=== PATIENT | female | born 1970 | race Caucasian/White ===

== ENCOUNTER 2025-01-02 19:46 | Inpatient (IN) | payer MEDICARE, MEDICAID ==
[~2025-01-02] VITALS: Ht 165.1 cm; Wt 97.2 kg
[2025-01-02 22:40] LABS: BASOPHILS % (AUTO) 0.5 % (0.0-2.0); EOSINOPHILS % (AUTO) 1.6 % (1.0-6.0); HEMATOCRIT 40.6 % (36-46); HEMOGLOBIN 13.5 g/dL (12.0-16.0); LYMPHOCYTES # (AUTO) 4.4 K/uL (1.0-4.8); MEAN CORPUSCULAR HEMOGLOBIN 30.9 pg (26.0-34.0); MEAN CORPUSCULAR HGB CONC 33.3 G/dL (31.0-37.0); MEAN CORPUSCULAR VOLUME 93 fL (80-100); MONOCYTES # (AUTO) 1.2 K/uL (0.1-1.0); MONOCYTES % (AUTO) 10.4 % (2.0-9.0); NEUTROPHILS % (AUTO) 50.5 % (40.0-70.0); PLATELET COUNT (AUTO) 241 K/uL (150-450); RED BLOOD CELL COUNT(AUTO) 4.38 MIL/uL (4.00-5.20); RED CELL DISTRIBUTION WIDTH 13.1 % (11.5-14.5); WHITE BLOOD COUNT (AUTO) 11.8 K/uL (4.5-11.0)
[2025-01-02 22:48] LABS: ANION GAP 7 mmol/L (8-16); CALCIUM, TOTAL 9.4 mg/dL (8.8-10.5); CARBON DIOXIDE 35 mmol/L (22-29); CHLORIDE 101 mmol/L (98-107); CREATININE 1.03 mg/dL (0.60-1.30); GLOMERULAR FILTR. RATE CALC 56 mL/min (>60); GLUCOSE,RANDOM 109 mg/dL (70-110); POTASSIUM 4.3 mmol/L (3.5-5.1); SODIUM SERUM 143 mmol/L (136-145); UREA NITROGEN, BLOOD 23 mg/dL (7-18)
[2025-01-02 22:51] LABS: ALCOHOL, BLOOD (SERUM) < 3 mg/dL (0-10)
[2025-01-03] VITALS (10 sets, daily range): BP systolic 124–149; BP diastolic 80–97; PULSE 86–90; RESP 17–18; TEMP 97.5–98.1; O2SAT 96–99
[2025-01-03 00:29] LABS: COVID AG,FIA SOURCE NASAL SWAB
[2025-01-03 00:49] LABS: SARS-COV2 (COVID) ANTIGEN,FIA Negative (Negative)
[2025-01-03] MEDS ORDERED: ZOLPIDEM TARTRATE 10 MG TABLET PO PRN (05:45)
[2025-01-03] MEDS ORDERED: LORazepam 2 MG TABLET PO PRN (05:45)
[2025-01-03] MEDS ORDERED: HALOPERIDOL 5 MG TABLET PO PRN (05:45)
[2025-01-03] MEDS ORDERED: MAG HYDROX/ALUMINUM HYD/SIMETH ES 30 ML SUSPENSION UDCUP PO PRN ×2 (09:45→10:00)
[2025-01-03] MEDS ORDERED: MAGNESIUM HYDROXIDE SUSPENSION 30 ML UDCUP PO PRN ×2 (09:45→10:00)
[2025-01-03] MEDS ORDERED: CloNIDine HCL 0.1 MG TABLET PO PRN (09:45)
[2025-01-03] MEDS ORDERED: DOCUSATE SODIUM 100 MG CAPSULE PO PRN (09:45)
[2025-01-03] MEDS ORDERED: GuaiFENesin/D-METHORPHAN [SUGAR-FREE] 200-20MG/10 ML SYRUP UDCUP PO PRN ×2 (09:45→10:00)
[2025-01-03] MEDS ORDERED: IBUPROFEN 400 MG TABLET PO PRN (09:45)
[2025-01-03] MEDS ORDERED: ONDANSETRON 4 MG TABLET PO PRN (09:45)
[2025-01-03] MEDS ORDERED: ALBUTEROL SULFATE HFA 90 MCG/PUFF 8 GM INHALER IH PRN (09:45)
[2025-01-03] MEDS ORDERED: ACETAMINOPHEN 325 MG TABLET PO PRN (09:45)
[2025-01-03] MEDS ORDERED: NICOTINE 14 MG/24 HOUR PATCH TD PRN (09:45)
[2025-01-03] MEDS ORDERED: PETROLATUM,WHITE 28 GM JELLY TP PRN (09:45)
[2025-01-03] MEDS ORDERED: LOPERAMIDE HCL 2 MG CAPSULE PO PRN ×2 (09:45→10:00)
[2025-01-03] MEDS ORDERED: MELATONIN 5 MG TABLET PO PRN (10:00)
[2025-01-03] MEDS ORDERED: PROMETHAZINE HCL 25 MG TABLET PO PRN (10:00)
[2025-01-03] MEDS ORDERED: HydrOXYzine PAMOATE 50 MG CAPSULE PO PRN (10:00)
[2025-01-03] MEDS: ACETAMINOPHEN 325 MG TABLET PO PRN ×2 (10:58→15:54)
[2025-01-03] MEDS: LevETIRAcetam 100 MG/ML 5 ML SOLUTION UDCUP PO SCH (16:30)
[2025-01-03] MEDS: LamoTRIgine 100 MG TABLET PO SCH (16:31)
[2025-01-03] MEDS: THIAMINE 100 MG TABLET PO SCH (16:31)
[2025-01-03] MEDS: PALIPERIDONE PALMITATE 234 MG/1.5 ML SYRINGE IM ONE (16:59)
[2025-01-03] MEDS: TUBERCULIN, PURIFIED PROTEIN DERIVATIVE 5 TU/0.1 ML SYRINGE ID ONE (17:36)
[2025-01-03] MEDS: OLANZapine 5 MG RAPDIS TABLET PO SCH (20:41)
[2025-01-03] MEDS: DIVALPROEX SODIUM 500 MG ER TABLET PO SCH (20:41)
[2025-01-04 00:17] VITALS: RESP 16
[2025-01-04 08:06] VITALS: BP 149/104; PULSE 92; RESP 18; TEMP 97.8; O2SAT 98
[2025-01-04] MEDS: NALTREXONE HCL 50 MG TABLET PO SCH (08:40)
[2025-01-04] MEDS ORDERED: FOLIC ACID 1 MG TABLET PO SCH (09:00)
[2025-01-04] MEDS ORDERED: MULTIVITAMINS WITH MINERALS, THERAPEUTIC TABLET PO SCH (09:00)
[2025-01-04 09:38] LABS: BASOPHILS % (AUTO) 0.6 % (0.0-2.0); EOSINOPHILS % (AUTO) 2.3 % (1.0-6.0); HEMATOCRIT 40.9 % (36-46); HEMOGLOBIN 13.7 g/dL (12.0-16.0); LYMPHOCYTES # (AUTO) 3.1 K/uL (1.0-4.8); MEAN CORPUSCULAR HEMOGLOBIN 31.4 pg (26.0-34.0); MEAN CORPUSCULAR HGB CONC 33.5 G/dL (31.0-37.0); MEAN CORPUSCULAR VOLUME 94 fL (80-100); MONOCYTES % (AUTO) 9.5 % (2.0-9.0); NEUTROPHILS # (AUTO) 5.7 K/uL (1.8-7.7); NEUTROPHILS % (AUTO) 56.6 % (40.0-70.0); PLATELET COUNT (AUTO) 241 K/uL (150-450); RED BLOOD CELL COUNT(AUTO) 4.36 MIL/uL (4.00-5.20); RED CELL DISTRIBUTION WIDTH 13.4 % (11.5-14.5)
[2025-01-04 09:39] LABS: HEMOGLOBIN A1C 5.4 % (3.8-5.6)
[2025-01-04 10:08] LABS: ALANINE AMINOTRANSFERASE 29 U/L (12-78); ALKALINE PHOSPHATASE 80 U/L (46-116); ANION GAP 7 mmol/L (8-16); ASPARTATE AMINOTRANSFERASE 32 U/L (15-37); BILIRUBIN,TOTAL 0.4 mg/dL (0.1-1.0); CALCIUM, TOTAL 9.4 mg/dL (8.8-10.5); CARBON DIOXIDE 32 mmol/L (22-29); CHLORIDE 104 mmol/L (98-107); CREATININE 0.87 mg/dL (0.60-1.30); GLOMERULAR FILTR. RATE CALC > 60 mL/min (>60); GLUCOSE,RANDOM 141 mg/dL (70-110); POTASSIUM 4.2 mmol/L (3.5-5.1); SODIUM SERUM 143 mmol/L (136-145); UREA NITROGEN, BLOOD 20 mg/dL (7-18)
[2025-01-04 10:09] LABS: ALBUMIN 3.2 g/dL (3.4-5.0); CHOL/HDL RATIO 3.5 (3.9-5.7); CHOLESTEROL 209 mg/dL (131-200); HDL CHOLESTEROL 60 mg/dL (40-60); LDL CHOL (CALC.) 121 mg/dL (0-130); THYROID STIMULATING HORMONE 3.11 uIU/mL (0.36-3.74); TOTAL PROTEIN, SERUM 7.9 g/dL (6.4-8.2); TRIGLYCERIDES 140 mg/dL (15-150)
[2025-01-04 12:14] VITALS: RESP 19
[2025-01-04 13:14] VITALS: RESP 17
[2025-01-04 20:00] VITALS: BP 118/97; PULSE 81; RESP 17; TEMP 97.7; O2SAT 98
[2025-01-05 08:14] VITALS: BP 130/89; PULSE 93; RESP 17; TEMP 97.6; O2SAT 98
[2025-01-05] MEDS: OLANZapine 10 MG RAPDIS TABLET PO SCH (20:18)
[2025-01-05 20:42] VITALS: BP 135/79; PULSE 84; RESP 18; TEMP 97.7; O2SAT 95
[2025-01-06 08:24] VITALS: BP 142/76; PULSE 97; RESP 18; TEMP 97.7; O2SAT 98
[2025-01-07 08:00] VITALS: BP 135/74; PULSE 91; RESP 17; TEMP 97.8; O2SAT 98
[2025-01-07] MEDS: PALIPERIDONE PALMITATE 156 MG/ML SYRINGE IM ONE (09:39)
[2025-01-07 20:06] VITALS: BP 148/84; PULSE 81; RESP 18; TEMP 97.2; O2SAT 96
[2025-01-08 08:19] VITALS: BP 142/92; PULSE 95; RESP 18; TEMP 98.3; O2SAT 98
[2025-01-08 20:57] VITALS: BP 129/69; PULSE 75; RESP 16; TEMP 97.1; O2SAT 96
[2025-01-09 08:23] VITALS: BP 134/67; PULSE 73; RESP 17; TEMP 97.9; O2SAT 95
[2025-01-09 22:47] VITALS: BP 151/81; PULSE 83; RESP 18; TEMP 97.7; O2SAT 98
[2025-01-10] MEDS: LEVOTHYROXINE SODIUM 50 MCG TABLET PO SCH (06:46)
[2025-01-10 08:47] VITALS: BP 112/84; PULSE 83; RESP 18; TEMP 97.1; O2SAT 100
[2025-01-10] MEDS ORDERED: LAMO-24 PO (13:10)
[2025-01-10] MEDS ORDERED: LEVE500S33 PO (13:10)
[2025-01-10] MEDS ORDERED: DIVA-153 PO (13:10)
[2025-01-10] MEDS ORDERED: OLAN10TA26 PO (13:10)
[2025-01-10] MEDS ORDERED: LORazepam 2 MG/ML VIAL IM ONE (15:00)
[2025-01-10] MEDS ORDERED: DiphenhydrAMINE HCL 50 MG/ML VIAL IM ONE (15:00)
[2025-01-10] MEDS ORDERED: ChlorproMAZINE HCL 50 MG/2 ML AMP IM ONE (15:00)
[2025-01-10] MEDS ORDERED: LEVE500T8 PO (16:20)
== END 2025-01-10 19:20 | disposition home or self-care (01) | DRG 885 ==
LOC: EMS 19:46 → B2X 01-03 02:50 → B2S 01-09 20:10
PROVIDERS: ADMIT Psychiatry & Neurology Psychiatry; ATTEND Psychiatry & Neurology Psychiatry
PROC: GZHZZZZ Group Psychotherapy (ICD-10-PCS; principal; 2025-01-03)
PROC: GZ58ZZZ Individual Psychotherapy, Cognitive-Behavioral (ICD-10-PCS; 2025-01-03)
PROC: GZ56ZZZ Individual Psychotherapy, Supportive (ICD-10-PCS; 2025-01-04)
DX: F20.9 Schizophrenia, unspecified (principal); F70 Mild intellectual disabilities; E03.9 Hypothyroidism, unspecified; E11.9 Type 2 diabetes mellitus without complications; E66.9 Obesity, unspecified; Z20.822 Contact with and (suspected) exposure to COVID-19; E28.2 Polycystic ovarian syndrome; E78.00 Pure hypercholesterolemia, unspecified; D72.829 Elevated white blood cell count, unspecified; F31.9 Bipolar disorder, unspecified; I10 Essential (primary) hypertension; Z90.49 Acquired absence of other specified parts of digestive tract; Z91.148 Patient's other noncompliance with medication regimen for other reason; Z88.6 Allergy status to analgesic agent; Z68.35 Body mass index [BMI] 35.0-35.9, adult
CPT/HCPCS: 80048; 80053; 80061; 80164; 83036; 84439; 84443; 85025; 86592; 96372; 99285; G0480

== ENCOUNTER 2025-09-20 10:10 | Emergency (ER) | payer MEDICARE, OTHER ==
[~2025-09-20] VITALS: Ht 170.2 cm; Wt 97.0 kg
[~2025-09-20 10:10] MED LIST: DIVA-153 PO; LAMO-24 PO; LEVE500T8 PO; OLAN10TA26 PO
[2025-09-20 10:25] VITALS: BP 136/100; PULSE 80; RESP 16; TEMP 98; O2SAT 99
[2025-09-20] MEDS ORDERED: DIVA-112 PO (10:41)
[2025-09-20] MEDS ORDERED: LEVE-71 PO (10:42)
[2025-09-20] MEDS ORDERED: TROS20TA3 PO (10:43)
[2025-09-20] MEDS ORDERED: OLAN7.5T22 PO (10:43)
[2025-09-20] MEDS ORDERED: LEVO50 PO (10:44)
[2025-09-20] MEDS ORDERED: MIRA50TA PO (10:44)
[2025-09-20] MEDS ORDERED: HYDR25TA2 PO (10:45)
[2025-09-20] MEDS: ACETAMINOPHEN 325 MG TABLET PO ONE (12:44)
[2025-09-20] MEDS: BACITRACIN 0.9 GM PACKET OINTMENT TP ONE (12:45)
== END 2025-09-20 13:43 | disposition home or self-care (01) ==
LOC: EMS 10:10
DX: R51.9 Headache, unspecified (principal); R42 Dizziness and giddiness; E03.9 Hypothyroidism, unspecified; I10 Essential (primary) hypertension; Z88.6 Allergy status to analgesic agent; Z79.899 Other long term (current) drug therapy; W01.10XA Fall on same level from slipping, tripping and stumbling with subsequent striking against unspecified object, initial encounter
CPT/HCPCS: 99283